=== PATIENT | male | born 1960 | race Caucasian/White ===

== ENCOUNTER 2016-07-18 15:22 | Outpatient (CLI) | payer OTHER ==
[~2016-07-18 15:22] MED LIST: ADVIL200 M1 PO; ASPIRIN ADULT L81 M1 PO; ATORVASTATIN CA20 MG PO; CARVEDILOL12.5 MG PO; CLARITIN10 M2 PO; FLUOXETINE HCL20 MG PO; GLUCOSAMINE1500 COM; MULTIVITAMIN1 TAB PO
--- NOTE | 2016-07-18 16:18 | DIAGNOSTIC IMAGING REPORT ---
PROCEDURE: XR LUMBAR SPINE 2 OR 3 VIEWS INDICATION: PAIN TECHNIQUE: Three views. COMPARISON: None. FINDINGS: There is spondylosis at L5-S1 with a posterior osteophytic ridge. No evidence of an acute process or fracture. IMPRESSION: 1. Spondylosis with posterior osteophytic ridge at L5-S1.
--- NOTE | 2016-07-18 16:22 | DIAGNOSTIC IMAGING REPORT ---
PROCEDURE: XR HIP 2VW W W/O AP PELVIS-RT INDICATION: PAIN TECHNIQUE: AP view of the pelvis and hips with lateral view of the right hip. COMPARISON: None. FINDINGS: Right HIP: There is severe osteoarthritis with joint space narrowing, sclerosis and irregularity of the femoral head. PELVIS: Osseous pelvis is normal. IMPRESSION: 1. Negative pelvis and severe osteoarthritis right hip.
--- NOTE | 2016-07-18 16:25 | DIAGNOSTIC IMAGING REPORT ---
PROCEDURE: XR KNEE 3 VIEWS - RIGHT INDICATION: PAIN TECHNIQUE: Three views. COMPARISON: Knee films 04/26/14 FINDINGS: There is patellofemoral osteoarthritis with narrowing of the joint space laterally. IMPRESSION: 1. Patellofemoral osteoarthritis with the joint space narrowing laterally.
== END 2016-07-18 23:00 ==
LOC: XR SRH 15:22
DX: M47.817 Spondylosis without myelopathy or radiculopathy, lumbosacral region (principal); M25.78 Osteophyte, vertebrae; M16.11 Unilateral primary osteoarthritis, right hip; M17.11 Unilateral primary osteoarthritis, right knee; I10 Essential (primary) hypertension